=== PATIENT | female | born 1955 | race Caucasian/White ===

== ENCOUNTER 2017-10-15 09:24 | Inpatient (IN) | payer MEDICAID ==
[~2017-10-15] VITALS: Ht 157.5 cm; Wt 68.9 kg
[2017-10-15 11:52] LABS: HEMATOCRIT. 41.8 % (36.0-48.0); HEMOGLOBIN. 13.7 g/dL (12.0-16.0); MEAN CORPUSCULAR HEMOGLOBIN 28.5 pg (28.0-32.0); MEAN CORPUSCULAR VOLUME 87.2 fL (81.0-99.0); RED CELL DISTRIBUTION WIDTH 13.4 % (11.6-14.6)
[2017-10-15 12:02] LABS: CHLORIDE 102 mEq/L (98-107)
[2017-10-15 12:10] LABS: PROTHROMBIN TIME 10.6 sec (9.4-11.6)
[2017-10-15] MEDS ORDERED: ACETAMINOPHEN 325MG TABLET PO PRN ×2 (12:45→17:00)
[2017-10-15] MEDS ORDERED: ONDANSETRON HCL 4MG/2ML INJ IV PRN ×2 (12:45→17:00)
[2017-10-15] MEDS ORDERED: IPRATROPIUM/ALBUTEROL 0.5-3(2.5)MG/3ML NEB INH PRN (12:45)
[2017-10-15] MEDS ORDERED: HYDROCODONE/ACETAMINOPHEN 5/325MG TABLET PO PRN ×2 (12:45→17:00)
[2017-10-15] MEDS ORDERED: CLONIDINE 0.1MG TABLET PO PRN (12:45)
[2017-10-15] MEDS ORDERED: NORMAL SALINE 0.9% 10 ML SYR ONE (13:16)
[2017-10-15] MEDS ORDERED: BUPIVACAINE HCL/PF 0.25% (2.5MG/ML) 10ML ONE (13:16)
[2017-10-15] MEDS ORDERED: BACITRACIN 50,000 UNITS/VIAL ONE (13:16)
[2017-10-15] MEDS ORDERED: FENTANYL CITRATE/PF 50MCG/ML 2ML VIAL ONE ×2 (13:42→17:02)
[2017-10-15] MEDS ORDERED: MIDAZOLAM HCL 2 MG/2 ML VIAL ONE (13:42)
[2017-10-15] MEDS ORDERED: SODIUM CHLORIDE 0.9% 10ML VIAL ONE (13:43)
[2017-10-15] MEDS ORDERED: ROCURONIUM BROMIDE 10MG/ML VIAL 5ML IV ONE (13:43)
[2017-10-15] MEDS ORDERED: CEFAZOLIN SODIUM 1000MG/VIAL ONE (13:43)
[2017-10-15] MEDS ORDERED: LIDOCAINE HCL/PF 1% 10 MG/ML 5ML VIAL ONE (13:49)
[2017-10-15] MEDS ORDERED: PROPOFOL 200MG/20ML VIAL IV ONE (13:49)
[2017-10-15] MEDS ORDERED: ONDANSETRON HCL 4MG/2ML INJ ONE (16:11)
[2017-10-15] MEDS ORDERED: METOCLOPRAMIDE HCL 10MG/2ML VIAL ONE (16:11)
[2017-10-15] MEDS ORDERED: MORPHINE SULFATE 2 MG/ML CPJ (NOT FOR IM USE) IV PRN (17:15)
[2017-10-15] MEDS ORDERED: EPHEDRINE SULFATE 50MG/ML VIAL ONE (17:20)
[2017-10-15] MEDS ORDERED: NALOXONE INJ IV PRN (17:45)
[2017-10-15] MEDS ORDERED: MORPHINE PCA 50MG/50ML IV PRN (17:45)
[2017-10-15] MEDS ORDERED: ONDANSETRON INJ IV PRN (17:45)
[2017-10-15] MEDS ORDERED: DIPHENHYDRAMINE INJ IV PRN (17:45)
[2017-10-15 18:45] VITALS: BP 124/58
[2017-10-15 20:00] VITALS: BP 144/86
[2017-10-15] MEDS: HYDROCODONE/ACETAMINOPHEN 5/325MG TABLET PO PRN (20:03)
[2017-10-15] MEDS: CEFAZOLIN 1000MG PREMIX 50 ML IV SCH (21:48)
[2017-10-15] MEDS: CELECOXIB 200MG CAPSULE PO SCH (21:48)
[2017-10-15] MEDS: SODIUM CHLORIDE 0.9% 1,000 ML IV SCH (21:49)
[2017-10-15 22:00] VITALS: BP_SYST 144; BP_SYST 158; BP_DIAS 86; BP_DIAS 88
[2017-10-15] MEDS ORDERED: CEFAZOLIN SODIUM 1000MG/VIAL IV SCH (22:00)
[2017-10-16] VITALS: BP 106/64
[2017-10-16] MEDS: SODIUM CHLORIDE 0.9% 1,000 ML IV SCH (03:20)
[2017-10-16 04:00] VITALS: BP 143/65
[2017-10-16] MEDS: CEFAZOLIN 1000MG PREMIX 50 ML IV SCH (04:09)
[2017-10-16 04:55] LABS: BASOPHILS % 0.6 % (0.0-2.0); EOSINOPHILS % 0.9 % (0.0-5.0); HEMATOCRIT. 37.9 % (36.0-48.0); HEMOGLOBIN. 12.5 g/dL (12.0-16.0); LYMPHOCYTES % 22.6 % (20.0-50.0); MEAN CORPUSCULAR HEMOGLOBIN 28.9 pg (28.0-32.0); MEAN CORPUSCULAR VOLUME 87.9 fL (81.0-99.0); MEAN PLATELET VOLUME 8.1 fl (7.4-10.4); MONOCYTES % 9.8 % (2.0-8.0); NEUTROPHILS % 66.1 % (40.0-76.0); PLATELET 257 x1000/uL (130-400); RED BLOOD CELL COUNT 4.32 mill/uL (4.2-5.4); RED CELL DISTRIBUTION WIDTH 13.6 % (11.6-14.6)
[2017-10-16 05:20] LABS: CHLORIDE 105 mEq/L (98-107); HDL CHOLESTEROL 52 mg/dL (40-59); LDL CHOLESTEROL 67 mg/dL (5-100)
[2017-10-16] MEDS: HYDROCODONE/ACETAMINOPHEN 5/325MG TABLET PO PRN (06:21)
[2017-10-16 08:00] VITALS: BP 147/68
[2017-10-16] MEDS: CELECOXIB 200MG CAPSULE PO SCH (08:36)
[2017-10-16 12:00] VITALS: BP 108/64
[2017-10-16 13:10] VITALS: BP 104/64
== END 2017-10-16 13:40 | disposition home or self-care (01) | DRG 315 ==
LOC: ER 09:56 → ENRESERV 12:16 → EDBEDREQ 12:33 → 6EST 12:38
PROVIDERS: ADMIT Internal Medicine; ATTEND Internal Medicine
PROC: 0PSJ04Z Reposition Left Radius with Internal Fixation Device, Open Approach (ICD-10-PCS; principal; 2017-10-15)
DX: S52.532A Colles' fracture of left radius, initial encounter for closed fracture (principal); E44.1 Mild protein-calorie malnutrition; I10 Essential (primary) hypertension; E78.5 Hyperlipidemia, unspecified; E78.00 Pure hypercholesterolemia, unspecified; W18.39XA Other fall on same level, initial encounter; Y93.89 Activity, other specified; Y92.89 Other specified places as the place of occurrence of the external cause; Y99.8 Other external cause status
CPT/HCPCS: 36415; 71045; 73090; 73110; 80048; 80061; 84484; 93005; 97110; 97165; 97535; 99285; J0690; J2250; J2270; J2405; J2704; J2765; J3010; J3490; J7030; J7120